=== PATIENT | female | born 1970 ===

== ENCOUNTER 2019-07-07 12:32 | Emergency (ER) | payer OTHER ==
--- NOTE | 2019-07-07 13:26 | UC ---
Respiratory Complaint HPI - HPI Summary HPI Summary: started 3 days ago with fatigue, then developed cough and nasal congestion. today cough is worse and calderon chest when coughing. has not taken any meds thus far - History of Current Complaint Chief Complaint: UCRespiratory Stated Complaint: CHEST CONGESTION Time Seen by Provider: 07/07/19 12:45 Hx Obtained From: Patient Onset/Duration: Gradual Onset Timing: Constant Severity Initially: Mild Severity Currently: Moderate Pain Intensity: 4 Aggravating Factors: Deep Breaths Alleviating Factors: Nothing Associated Signs And Symptoms: Positive: Fever, Nasal Congestion. Negative: Hemoptysis, Dizziness - Allergies/Home Medications Allergies/Adverse Reactions: Allergies Allergy/AdvReac Type Severity Reaction Status Date / Time No Known Allergies Allergy Verified 07/07/19 13:05 Home Medications: Home Medications Escitalopram * [Lexapro *] 10 mg PO DAILY 07/07/19 [History Confirmed 07/07/19] PMH/Surg Hx/FS Hx/Imm Hx Previously Healthy: Yes Psychological History: Depression - Surgical History Surgical History: None - Family History Known Family History: Positive: Non-Contributory - Social History Occupation: Employed Full-time Lives: With Family Alcohol Use: Occasionally Substance Use Type: None Smoking Status (MU): Never Smoked Tobacco Review of Systems All Other Systems Reviewed And Are Negative: Yes Constitutional: Positive: Fever, Fatigue Skin: Positive: Negative. Negative: Rash Eyes: Positive: Other - pressure from behind eyes ENT: Positive: Sinus Congestion. Negative: Sore Throat, Ear Ache Respiratory: Positive: Cough Cardiovascular: Positive: Negative Gastrointestinal: Positive: Negative Psychological: Positive: Negative Is Patient Immunocompromised?: No Physical Exam Triage Information Reviewed: Yes Appearance: Well-Appearing, No Pain Distress, Well-Nourished Vital Signs: Initial Vital Signs Temp 99.0 F 07/07/19 13:01 Pulse 71 07/07/19 13:01 Resp 17 07/07/19 13:01 BP 120/85 07/07/19 13:01 Pulse Ox 100 07/07/19 13:01 Vital Signs Reviewed: Yes Eyes: Positive: Conjunctiva Clear ENT: Positive: Pharynx normal, Nasal congestion, TMs normal, Hoarse voice Neck exam: Normal Neck: Positive: No Lymphadenopathy Respiratory: Positive: Lungs clear, No respiratory distress, Other: - dry harsh cough Cardiovascular Exam: Normal Cardiovascular: Positive: RRR Neurological Exam: Normal Psychological Exam: Normal Skin Exam: Normal Skin: Negative: Rashes Respiratory Course/Dx - Differential Dx/Diagnosis Differential Diagnosis/HQI/PQRI: Bronchitis, Lower Resp Infection, Sinusitis Provider Diagnosis: Bronchitis Discharge - Sign-Out/Discharge Documenting (check all that apply): Patient Departure All imaging exams completed and their final reports reviewed: No Studies - Discharge Plan Condition: Good Disposition: HOME Prescriptions: Azithromycin TAB* [Zithromax TAB (Z-BOB) 250 mg #6 tabs] 2 tab PO .TODAY, THEN 1 DAILY #1 bob Patient Education Materials: Acute Bronchitis (ED) Referrals: No Primary Care Phys,NOPCP [Primary Care Provider] - Additional Instructions: Rest and drink plenty of fluids. start antibiotic and take as directed use Tylenol and Robitussin cough syrup for fever and cough return if your cough worsens or there is no improvement in 2-3 days - Billing Disposition and Condition Condition: GOOD Disposition: Home
== END 2019-07-07 13:33 | disposition home or self-care (01) ==
LOC: UCEAST 12:32
DX: J40 Bronchitis, not specified as acute or chronic (principal); F32.9 Major depressive disorder, single episode, unspecified
CPT/HCPCS: 99202; G0463